=== PATIENT | male | born 1955 | race Hispanic/Latino ===

== ENCOUNTER 2019-08-30 15:21 | Emergency (ER) | payer SELFPAY ==
[2019-08-30] MEDS ORDERED: predniSONE 20 MG TAB ONE (16:02)
[2019-08-30] MEDS ORDERED: Adacel (T-DAP) 0.5 ML SYRINGE ONE (16:02)
== END 2019-08-30 16:30 | disposition home or self-care (01) ==
LOC: ERS 15:21
DX: T63.461A Toxic effect of venom of wasps, accidental (unintentional), initial encounter (principal); Z71.6 Tobacco abuse counseling; E78.5 Hyperlipidemia, unspecified; E78.00 Pure hypercholesterolemia, unspecified; G51.0 Bell's palsy; F17.210 Nicotine dependence, cigarettes, uncomplicated
CPT/HCPCS: 90471; 90715; 99406; J7512

== ENCOUNTER 2020-04-22 12:59 | Emergency (ER) | payer SELFPAY | END 2020-04-22 14:06 | disposition home or self-care (01) | LOC: ERS 12:59 | DX: K02.9 Dental caries, unspecified (principal); K03.81 Cracked tooth | CPT/HCPCS: 99282 ==

== ENCOUNTER 2020-05-09 19:39 | Emergency (ER) | payer SELFPAY ==
[2020-05-09 20:00] LABS: #Basophils 0.1 thou/uL (0.0-0.2); #Eosinphils 0.3 thou/uL (0.0-0.7); #Lymphocytes 2.3 thou/uL (1.20-3.40); #Monocytes 0.8 thou/uL (0.11-0.59); #Neutrophils 5.6 thou/uL (1.40-6.50); %Basophils 1.3 % (0.0-1.0); %Lymphocytes 25.4 % (21.0-51.0); %Monocytes 8.7 % (0.0-10.0); %Neutrophils 61.6 % (42.0-75.0); Hemoglobin 16.6 g/dL (14.0-18.0); Mean Corpuscular HGB CONC 33.2 g/dL (32.0-36.0); Mean Corpuscular Hemoglobin 31.3 pg (27.0-31.0); Mean Corpuscular Volume 94.1 fL (78.0-98.0); Mean Platelet Volume 8.7 fL (7.4-10.4); Platelet Count 162 thou/uL (130-400); RBC Distribution Width 11.6 % (11.5-14.5); Red Blood Cell (RBC) Count 5.31 mill/uL (4.70-6.10); White Blood Cell (WBC) Count 9.1 thou/uL (4.8-10.8)
[2020-05-09 20:15] LABS: Bilirubin Negative (Negative); Blood, Urine Negative (Negative); Clarity Clear (Clear); Glucose, Urine (Dipstick) Normal (Negative); Leukocyte Negative Leu/uL (Negative); Nitrite Negative (Negative); Protein, Urine (Dipstick) 10 mg/dL (Neg-Trace)
[2020-05-09 20:22] LABS: ALT (SGPT) 36 U/L (8-55); AST (SGOT) 27 U/L (5-34); Albumin 4.3 g/dL (3.4-4.8); Alkaline Phosphatase 113 U/L (40-110); Anion Gap 12 mmol/L (10-20); BUN (Urea Nitrogen) 17 mg/dL (8.4-25.7); Bilirubin, Total 0.5 mg/dL (0.2-1.2); Calc. Creatinine Clearance 0 mL/min (70-130); Carbon Dioxide 26 mmol/L (23-31); Chloride 107 mmol/L (98-107); Estimated GFR-MDRD 75; Globulin 3.2 g/dL (2.4-3.5); Glucose 149 mg/dL (80-115); Lipase 52 U/L (8-78); Potassium 3.6 mmol/L (3.5-5.1); Protein, Total 7.5 g/dL (5.8-8.1); Sodium 141 mmol/L (136-145)
== END 2020-05-09 20:39 | disposition home or self-care (01) ==
LOC: ERS 19:39
DX: B02.9 Zoster without complications (principal); F17.210 Nicotine dependence, cigarettes, uncomplicated; E78.5 Hyperlipidemia, unspecified
CPT/HCPCS: 36415; 80053; 81003; 83690; 85025; 99283

== ENCOUNTER 2020-06-20 09:31 | Outpatient (CLI) | payer OTHER ==
[2020-06-20 16:12] LABS: #Basophils 0.1 thou/uL (0.0-0.2); #Eosinphils 0.2 thou/uL (0.0-0.7); #Lymphocytes 3.1 thou/uL (1.20-3.40); #Monocytes 0.8 thou/uL (0.11-0.59); #Neutrophils 6.2 thou/uL (1.40-6.50); %Basophils 0.9 % (0.0-1.0); %Eosinophils 2.4 % (0.0-10.0); %Monocytes 7.8 % (0.0-10.0); Hemoglobin 16.2 g/dL (14.0-18.0); Mean Corpuscular Hemoglobin 32.2 pg (27.0-31.0); Mean Corpuscular Volume 94.8 fL (78.0-98.0); Mean Platelet Volume 9.2 fL (7.4-10.4); Platelet Count 170 thou/uL (130-400); Red Blood Cell (RBC) Count 5.04 mill/uL (4.70-6.10); White Blood Cell (WBC) Count 10.5 thou/uL (4.8-10.8)
[2020-06-20 16:18] LABS: Anion Gap 10 mmol/L (10-20); BUN (Urea Nitrogen) 13 mg/dL (8.4-25.7); Calc. Creatinine Clearance 0 mL/min (70-130); Calcium 8.9 mg/dL (7.8-10.44); Carbon Dioxide 27 mmol/L (23-31); Chloride 108 mmol/L (98-107); Estimated GFR-MDRD 73; Glucose 84 mg/dL (80-115); Potassium 4.1 mmol/L (3.5-5.1); Sodium 141 mmol/L (136-145)
[2020-06-21 12:24] LABS: SARS-CoV-2 MS2 Positive; SARS-CoV-2 N Gene Negative; SARS-CoV-2 S Gene Negative; SARS-CoV-2 orf1ab Negative
== END 2020-06-20 09:32 | disposition home or self-care (01) ==
LOC: LABBT 09:31
PROVIDERS: ATTEND Specialist
DX: Z01.818 Encounter for other preprocedural examination (principal); Z11.59 Encounter for screening for other viral diseases; K40.90 Unilateral inguinal hernia, without obstruction or gangrene, not specified as recurrent
CPT/HCPCS: 80048; 85025; 87635; 93005; 93010; U0003

== ENCOUNTER 2020-06-24 05:55 | Day surgery (SDC) | payer OTHER ==
[2020-06-17 16:15] VITALS: BMI 30.7
[2020-06-24] MEDS ORDERED: Lidocaine 1% w/Epinephrine 1:100K 20 ML VIAL ONE (06:35)
[2020-06-24] MEDS ORDERED: Bupivacaine PF 0.5% 30 ML VIAL ONE (06:35)
[2020-06-24] MEDS ORDERED: Ketorolac Tromethamine 30 MG/ML VIAL ONE (06:49)
[2020-06-24] MEDS ORDERED: Gabapentin 300 MG CAP ONE (06:49)
[2020-06-24] MEDS ORDERED: Acetaminophen 500 MG TAB ONE (06:49)
[2020-06-24] MEDS ORDERED: Midazolam HCl 2 mg/2 ml Vial ONE (07:40)
[2020-06-24] MEDS ORDERED: Fentanyl 250 MCG/5 ML VIAL ONE (07:40)
--- NOTE | 2020-06-24 08:39 | HP ---
ADDENDUM: Addendum to History and Physical #22418, dictated 01/28/2020. River Figueroa is a 65-year-old male, seen in my office 01/28/2020 for a right inguinal [place]nia[place] [id number]. Has been approved by the [facility] to have this hernia repaired and will plan robot mesh repair as outpatient. He understands risks and benefits and consents. ALLERGIES: NONE. SOCIAL HISTORY: Tobacco less than a pack per day. Alcohol, none. He works as a construction trades contractor. SURGICAL HISTORY: Knee surgery. PAST MEDICAL HISTORY: Elevated cholesterol. MEDICATIONS: Cholesterol medication he cannot recall the name of. FAMILY HISTORY: Otherwise, noncontributory. REVIEW OF SYSTEMS: Otherwise, noncontributory. PHYSICAL EXAMINATION: VITAL SIGNS: Blood pressure 135/72, heart rate 89, temperature 98.2 degrees. HEAD, EARS, EYES, NOSE AND THROAT: Unremarkable. LUNGS: Clear to auscultation. CARDIAC: Regular rate and rhythm. No murmur or gallop. ABDOMEN: Soft, nontender. EXTREMITIES: Without edema. NEUROLOGIC: Intact. Right inguinal hernia reducible. ASSESSMENT AND PLAN: Right inguinal hernia. Plan robot mesh repair. He understands the risks and benefits and consents. Job ID: [id number]
--- NOTE | 2020-06-24 10:54 | OP ---
DATE OF PROCEDURE: 06/24/2020 PREOPERATIVE DIAGNOSIS: Right inguinal hernia. POSTOPERATIVE DIAGNOSIS: Bilateral inguinal hernias. PROCEDURE PERFORMED: Robot laparoscopic mesh repair of bilateral inguinal hernias. ANESTHESIA: General, local with 0.5% Marcaine 30 mL, mixed with 1% Xylocaine with epinephrine 20 mL. DESCRIPTION OF PROCEDURE: The patient was taken to the operating room where under general anesthesia, abdomen was clipped of hair, prepared with ChloraPrep, and draped in routine fashion. Local anesthetic was infiltrated in the skin and subcutaneous tissue about each port site. The patient was placed in slightly Trendelenburg position and supraumbilical left of midline incision made. Pneumoperitoneum to 15 mmHg was obtained with a Veress needle, replacing with 11-mm balloon port, placing the endoscope, making incisions, bilateral midabdominal lateral incisions, left and right anterior axillary lines and 8-mm ports placed, and the robot was docked and positioned and once properly positioned, robot inguinal hernia repair undertaken. The patient clinically had a right inguinal hernia, but could not detect the left, but on laparoscopic evaluation, he had a left inguinal hernia. Bilateral inguinal hernias undertaken, creating a peritoneal flaps bilaterally from the anterior superior iliac spine on both sides medially, creating a peritoneal flap dissecting down to the Palmer ligament medially and laterally, identifying the hernia sacs on both sides, dissecting the large hernia sac on the right and a smaller one on the left, freed from the cord structures along with fatty tissues, about 8 cm of cord structures dissected free. Inferior epigastric vessels identified on both sides and kept free of harm. Large meshes were obtained respectively in right and left and properly positioned medially, securing the mesh to Palmer ligament on the right and left side with 3-0 Vicryl suture and securing the mesh to the lateral of the inferior epigastric vessels on the right and left sides to the abdominal wall. Once the meshes were properly positioned and good hemostasis noted, the peritoneal flap closed on both sides with continuous suture of 3-0 V-Loc suture. Once this was completed, good hernia repairs noted. Good hemostasis noted. Sutures retrieved. Pneumoperitoneum reduced. All skin incisions were approximated with interrupted subdermal 4-0 Monocryl and [place] glue applied. Note, John used during the procedure and removed at the end. Job ID: [id number]
[2020-06-24] MEDS ORDERED: Rocuronium Bromide 10 MG/ML (10ML VIAL) ONE (11:02)
[2020-06-24] MEDS ORDERED: Ondansetron PF 4 MG/2 ML Vial ONE (11:02)
[2020-06-24] MEDS ORDERED: EPHEDRINE 25 MG/5 ML SYRINGE ONE (11:02)
[2020-06-24] MEDS ORDERED: Dexamethasone 20 MG/5 ML VIAL ONE (11:02)
[2020-06-24] MEDS ORDERED: diphenhydrAMINE 50 MG/ML VIAL ONE (11:02)
[2020-06-24] MEDS ORDERED: PROPOFOL 200 MG/20 ML VIAL ONE (11:02)
[2020-06-24] MEDS ORDERED: Glycopyrrolate 0.2 MG/ML 5 ML SYRINGE ONE (11:02)
== END 2020-06-24 14:38 | disposition home or self-care (01) ==
LOC: SDC 05:55
PROVIDERS: ATTEND Specialist
PROC: 0YUA4JZ Supplement Bilateral Inguinal Region with Synthetic Substitute, Percutaneous Endoscopic Approach (ICD-10-PCS; principal; 2020-06-24)
DX: K40.20 Bilateral inguinal hernia, without obstruction or gangrene, not specified as recurrent (principal); E78.00 Pure hypercholesterolemia, unspecified; F17.210 Nicotine dependence, cigarettes, uncomplicated; Z79.899 Other long term (current) drug therapy
CPT/HCPCS: C1781; J0690; J1100; J1200; J1885; J2250; J2405; J2704; J3010; S0020

== ENCOUNTER 2021-04-16 16:04 | Emergency (ER) | payer OTHER | END 2021-04-16 17:58 | disposition home or self-care (01) | LOC: ERS 16:04 | DX: K04.7 Periapical abscess without sinus (principal); F17.210 Nicotine dependence, cigarettes, uncomplicated | CPT/HCPCS: 99282 ==

== ENCOUNTER 2021-12-23 20:33 | Emergency (ER) | payer SELFPAY | END 2021-12-23 23:05 | disposition home or self-care (01) | LOC: ERS 20:33 | DX: R04.0 Epistaxis (principal); E78.5 Hyperlipidemia, unspecified; F17.210 Nicotine dependence, cigarettes, uncomplicated | CPT/HCPCS: 12011 ==

== ENCOUNTER 2022-12-29 14:35 | Emergency (ER) | payer SELFPAY | END 2022-12-29 16:14 | disposition home or self-care (01) | LOC: ERS 14:35 | DX: R04.0 Epistaxis (principal); E78.5 Hyperlipidemia, unspecified; F17.210 Nicotine dependence, cigarettes, uncomplicated | CPT/HCPCS: 99283 ==

== ENCOUNTER 2024-04-11 07:41 | Emergency (ER) | payer SELFPAY ==
[2024-04-11] MEDS ORDERED: Dexamethasone 10 MG/ML VIAL ONE (08:17)
[2024-04-11] MEDS ORDERED: diphenhydrAMINE 25 MG CAP ONE (08:18)
[2024-04-11] MEDS ORDERED: Famotidine 20 MG TAB ONE (08:18)
== END 2024-04-11 09:37 | disposition home or self-care (01) ==
LOC: ERS 07:41
DX: T78.3XXA Angioneurotic edema, initial encounter (principal); R22.0 Localized swelling, mass and lump, head; F17.210 Nicotine dependence, cigarettes, uncomplicated; E78.5 Hyperlipidemia, unspecified; Z79.82 Long term (current) use of aspirin; Z79.899 Other long term (current) drug therapy
CPT/HCPCS: 99283; J1100

== ENCOUNTER 2024-06-06 17:44 | Emergency (ER) | payer MEDICARE, SELFPAY ==
[2024-06-06] MEDS ORDERED: predniSONE 20 MG TAB ONE (18:26)
== END 2024-06-06 18:45 | disposition home or self-care (01) ==
LOC: ERS 17:44
DX: R21 Rash and other nonspecific skin eruption (principal); E78.5 Hyperlipidemia, unspecified; F17.210 Nicotine dependence, cigarettes, uncomplicated; Z79.899 Other long term (current) drug therapy
CPT/HCPCS: 99282; J7512

== ENCOUNTER 2024-10-17 08:28 | Emergency (ER) | payer SELFPAY ==
[2024-10-17] MEDS ORDERED: Famotidine 20 MG TAB ONE (08:51)
[2024-10-17] MEDS ORDERED: diphenhydrAMINE 25 MG CAP ONE (08:51)
[2024-10-17] MEDS ORDERED: predniSONE 20 MG TAB ONE (08:55)
== END 2024-10-17 09:31 | disposition home or self-care (01) ==
LOC: ERS 08:28
DX: L50.9 Urticaria, unspecified (principal); E78.00 Pure hypercholesterolemia, unspecified; F17.210 Nicotine dependence, cigarettes, uncomplicated; Z79.899 Other long term (current) drug therapy
CPT/HCPCS: 99282; J7512

== ENCOUNTER 2024-11-11 18:48 | Emergency (ER) | payer SELFPAY ==
[2024-11-11] MEDS ORDERED: predniSONE 20 MG TAB ONE (20:21)
[2024-11-11] MEDS ORDERED: diphenhydrAMINE 25 MG CAP ONE (20:21)
[2024-11-11] MEDS ORDERED: Famotidine 20 MG TAB ONE ×2 (20:21→20:22)
== END 2024-11-11 21:12 ==
LOC: ERS 18:48
DX: L50.1 Idiopathic urticaria (principal); F17.210 Nicotine dependence, cigarettes, uncomplicated
CPT/HCPCS: 99282; J7512

== ENCOUNTER 2024-11-18 00:26 | Emergency (ER) | payer SELFPAY ==
[2024-11-18] MEDS ORDERED: Dexamethasone 10 MG/ML VIAL ONE (01:51)
== END 2024-11-18 02:30 | disposition home or self-care (01) ==
LOC: ERS 00:26
DX: K14.8 Other diseases of tongue (principal); F17.210 Nicotine dependence, cigarettes, uncomplicated
CPT/HCPCS: 99284; J1100

== ENCOUNTER 2024-12-27 16:21 | Emergency (ER) | payer SELFPAY ==
[2024-12-27] MEDS ORDERED: predniSONE 20 MG TAB ONE (18:28)
[2024-12-27] MEDS ORDERED: diphenhydrAMINE 25 MG CAP ONE (18:28)
[2024-12-27] MEDS ORDERED: Famotidine 20 MG TAB ONE (18:28)
== END 2024-12-27 20:25 | disposition home or self-care (01) ==
LOC: ERS 16:21
DX: L50.9 Urticaria, unspecified (principal); F17.210 Nicotine dependence, cigarettes, uncomplicated
CPT/HCPCS: 99283; J7512

== ENCOUNTER 2025-01-14 15:13 | Emergency (ER) | payer SELFPAY ==
[2025-01-14] MEDS ORDERED: EPINEPHrine 1 MG/ML VIAL ONE (15:40)
[2025-01-14] MEDS ORDERED: Dexamethasone 10 MG/ML VIAL ONE (15:40)
[2025-01-14] MEDS ORDERED: diphenhydrAMINE 50 MG/ML VIAL ONE (15:40)
== END 2025-01-14 18:36 | disposition home or self-care (01) ==
LOC: ERS 15:13
DX: T78.40XA Allergy, unspecified, initial encounter (principal); E78.00 Pure hypercholesterolemia, unspecified; F17.210 Nicotine dependence, cigarettes, uncomplicated; Z79.899 Other long term (current) drug therapy; Z79.52 Long term (current) use of systemic steroids; X58.XXXA Exposure to other specified factors, initial encounter
CPT/HCPCS: 96372; 99284; J0171; J1100; J1200

== ENCOUNTER 2025-07-02 07:20 | Emergency (ER) | payer MEDICARE ==
[2025-07-02] MEDS ORDERED: diphenhydrAMINE 25 MG CAP ONE (07:44)
[2025-07-02] MEDS ORDERED: Famotidine 20 MG TAB ONE ×2 (07:44→07:45)
[2025-07-02] MEDS ORDERED: predniSONE 20 MG TAB ONE (07:44)
== END 2025-07-02 09:25 | disposition home or self-care (01) ==
LOC: ERS 07:20
DX: L50.9 Urticaria, unspecified (principal); F17.210 Nicotine dependence, cigarettes, uncomplicated
CPT/HCPCS: 36416; 99283; J7512

== ENCOUNTER 2025-09-13 19:56 | Emergency (ER) | payer MEDICARE ==
[2025-09-13] MEDS ORDERED: Ketorolac Tromethamine 30 MG (1 mL) VIAL ONE (20:37)
== END 2025-09-13 20:50 | disposition home or self-care (01) ==
LOC: ERS 19:56
DX: K08.89 Other specified disorders of teeth and supporting structures (principal); E78.5 Hyperlipidemia, unspecified; F17.210 Nicotine dependence, cigarettes, uncomplicated
CPT/HCPCS: 96372; 99282; J1885